=== PATIENT | female | born 1990 | race Caucasian/White ===

== ENCOUNTER 2024-12-11 18:00 | Emergency (ER) | payer SELFPAY ==
[~2024-12-11] VITALS: Ht 157.5 cm; Wt 45.0 kg
[2024-12-11 18:02] VITALS: O2SAT 98
[2024-12-11 18:35] VITALS: BP 118/62; PULSE 89; RESP 16; TEMP 36.8; O2SAT 94
== END 2024-12-11 23:21 | disposition home or self-care (01) ==
LOC: ER 18:00
DX: T42.4X1A Poisoning by benzodiazepines, accidental (unintentional), initial encounter (principal); F19.90 Other psychoactive substance use, unspecified, uncomplicated; X58.XXXA Exposure to other specified factors, initial encounter; Y93.89 Activity, other specified; Y92.89 Other specified places as the place of occurrence of the external cause; Y99.8 Other external cause status
CPT/HCPCS: 99283